=== PATIENT | male | born 2000 | race Two or more races ===

== ENCOUNTER 2021-02-24 13:50 | Outpatient (REF) | payer OTHER, SELFPAY ==
[2021-02-24 16:42] LABS: SARS COV2 PCR INHOUSE NEGATIVE (Negative)
== END 2021-02-24 13:51 | disposition home or self-care (01) ==
LOC: HO.LAB 13:50
PROVIDERS: Visit Provider Internal Medicine
DX: Z20.822 Contact with and (suspected) exposure to COVID-19 (principal)
CPT/HCPCS: C9803; U0003

== ENCOUNTER 2021-03-01 20:03 | Emergency (ER) | payer OTHER, SELFPAY ==
[2021-03-01 20:21] VITALS: BP 127/87; PULSE 110; RESP 18; TEMP 36.9; O2SAT 100; BMI 19.0
[2021-03-01 21:06] LABS: Glucose Urine UA NEG (NEG); Leukocyte Esterase Urine NEG (NEG); Nitrite Urine NEG (NEG); Specific Gravity - Urine 1.025 (1.005-1.025); Urine Blood NEG (NEG); Urine Ketones 5 MG/DL (NEG); Urine Protein NEG (NEG-TRACE)
[2021-03-01 21:08] LABS: Appearance Urine CLEAR; Color Urine YELLOW
--- NOTE | 2021-03-01 21:22 | ED.GENADULT ---
HPI - General Adult General Chief complaint: General Medical Stated complaint: STD CHECK? Source: patient Mode of arrival: ambulatory Limitations: no limitations History of Present Illness HPI narrative: Patient presents to ED for sores in buccuaol mucosa. Patient also want wants to be treated for chlamydia gonorrhea though he had asymptomatic. Patient does not want exam. Related Data Previous Rx's Medication Instructions Recorded doxycycline hyclate 100 mg PO BID #14 cap 03/01/21 Allergies Allergy/AdvReac Type Severity Reaction Status Date / Time No Known Allergies Allergy Verified 03/01/21 20:27 Review of Systems Review of Systems: Yes all other systems are reviewed and are negative Constitutional: Constitutional: Reports as per HPI and Reports no additional constitutional complaints Eyes: Eyes: Reports as per HPI and Reports no additional eye complaints ENT: Reports system reviewed and no additional complaints, except as documented and Reports as per HPI Cardiovascular: Cardiovascular: Reports as per HPI and Reports no additional cardiovascular complaints Respiratory: Respiratory: Reports as per HPI and Reports no additional respiratory complaints Gastrointestinal: Gastrointestinal: Reports as per HPI and Reports no additional gastrointestinal complaints Genitourinary: Genitourinary: Reports no additional male genitourinary complaints and Reports as per HPI Musculoskeletal: Musculoskeletal: Reports no additional musculoskeletal complaints and Reports as per HPI Neurologic: Reports system reviewed and no additional complaints, except as documented and Reports as per HPI Psychiatric: Psychiatric: Reports no additional psychiatric complaints and Reports as per HPI [facility] Past Medical History Medical History (Updated 03/02/21 @ 00:01 by Background Daemon) No known health problems Social History Social History Smoked in Last 30 Days: No Substance Use Type: Marijuana Any prior treatment program specific to substance use: No Advance Directives: No Advance Directives Information Provided: Yes Physical Exam Vital Signs: Vital Signs: Last Vital Signs Temp 98.4 F 03/01/21 20:21 Pulse 110 H 03/01/21 20:21 Resp 18 03/01/21 20:21 BP 127/87 03/01/21 20:21 Pulse Ox 100 03/01/21 20:21 Body Mass Index 19.0 Const: General: cooperative, healthy appearing, comfortable, no acute distress, well developed, alert and awake Orientation/consciousness: patient oriented x3 HENMT: Other: oral exam indicate canker sores Head: Yes normal to inspection, Yes No palpable skull fracture present, Yes normocephalic, Yes atraumatic, No Lawrence's sign, No contusion, No cranial bruits, No hematoma, No laceration, No occipital foramen tenderness, No palpable skull fracture, No raccoon eyes, No scalp lesion, No scalp tenderness, No Temporal artery tenderness present and No periorbital ecchymosis Eyes: General: appearance normal, both eyes and all related structures Neck: Neck: Yes normal visual inspection, Yes full ROM, Yes no lymphadenopathy, Yes no meningeal signs, Yes trachea midline, Yes supple and No tender Chest: Chest palpation & inspection: normal inspection of the chest and normal palpation of entire chest wall Resp: Effort & Inspection: normal respiratory effort and able to speak in complete sentences Auscultation: clear to auscultation bilaterally Cardio: Jugular venous distension: no JVD Heart sounds: S1 normal heart sound present and S2 normal heart sound present GI: Inspection: Yes normal to inspection and No abdominal wall ecchymosis Palpation (GI): Soft to palpation, not firm, nontender, no guarding and not rigid : Other: patient refused exm General: No CVA tenderness and Yes no CVA tenderness Back/Spine/Pelvis: Back: no CVA tenderness, No CVA tenderness and No back tenderness Skin: General skin exam: no rashes or lesions noted and elasticity normal Neuro: General: patient oriented x3, no meningeal signs and CN's II-XI intact bilaterally Cranial nerves: Yes CN's II-XII intact bilaterally Extrem: General: Yes normal to inspection and Yes full ROM Psych: Appearance: grossly normal, well kempt and not disheveled Course Course Course Narrative: Patient admits to have 3 new sexual partners L would like to be treated for chlamydia and gonorrhea parent coli. Reevaluation(s) Reevaluation #1: Patient treated empirically for chlamydia and gonorrhea. Oral exam is kwabena cash Medical Decision Making Lab Data Labs: Lab Results 03/01/21 Range/Units 20:55 Urine Color YELLOW Urine Appearance CLEAR Urine pH 6.0 (5.0-8.0) Ur Specific [place] 1.025 (1.005-1.025) Urine Protein NEG (NEG-TRACE) MG/DL Urine Glucose (UA) NEG (NEG) MG/DL Urine Ketones 5 (NEG) MG/DL Urine Blood NEG (NEG) Urine Nitrite NEG (NEG) Ur Leukocyte Esterase NEG (NEG) Discharge Plan Discharge Clinical Impression: Canker sores oral Patient Disposition: Home, Self-Care Instructions: Safe Sex Practices (ED), Canker Sores (ED) Additional Instructions: Return to the ED for swelling of lips, worsening of lesions, testicular pain, penile lesion/discharge, dysuria, hematuria, or any other concerning symptoms. Follow-up with PCP Prescriptions: New doxycycline hyclate 100 mg capsule 100 mg PO BID Qty: 14 RF: 0 Interventions: ED Discharge Assessment Last Done: 03/01/21 21:48 Discharge Date/Time: 03/01/21 22:08 Print Language: Maltese
[2021-03-01] MEDS: cefTRIAXone sodium 500 MG, Lidocaine HCl 1 % MPF 1 ML IM (21:45)
[2021-03-02 12:37] LABS: CT PCR NOT DETECTED (Not Detect.); NG PCR NOT DETECTED (Not Detect.)
== END 2021-03-01 22:08 | disposition home or self-care (01) ==
PROVIDERS: Emergency Provider Internal Medicine
DX: K12.0 Recurrent oral aphthae (principal); F12.90 Cannabis use, unspecified, uncomplicated; Z20.2 Contact with and (suspected) exposure to infections with a predominantly sexual mode of transmission; Z79.899 Other long term (current) drug therapy
CPT/HCPCS: 81003; 87491; 87591; 96372; 99283; 99284; J0696